=== PATIENT | female | born 1980 | race Caucasian/White ===

== ENCOUNTER 2021-08-26 08:03 | Outpatient (RCR) | payer OTHER, SELFPAY | END 2021-12-08 10:21 | disposition home or self-care (01) | LOC: HO.WCC 08:03 | PROVIDERS: PCP Internal Medicine; Visit Provider Surgery | DX: E11.621 Type 2 diabetes mellitus with foot ulcer (principal); L97.522 Non-pressure chronic ulcer of other part of left foot with fat layer exposed | CPT/HCPCS: 11042; 11055; 15275; 29445; 97597; 99212; Q4101 ==